=== PATIENT | male | born 1970 ===

== ENCOUNTER → 2021-02-02 06:35 | Outpatient (CLI) | payer OTHER | END | disposition home or self-care (01) | LOC: LAB 06:35 | PROVIDERS: ATTEND Internal Medicine Endocrinology, Diabetes & Metabolism | DX: Z20.822 Contact with and (suspected) exposure to COVID-19 (principal); Z20.820 Contact with and (suspected) exposure to varicella ==

== ENCOUNTER 2021-05-15 07:37 | Outpatient (CLI) | payer OTHER | END 2021-05-15 07:38 | disposition home or self-care (01) | LOC: LAB 07:37 | PROVIDERS: ATTEND Emergency Medicine Pediatric Emergency Medicine | DX: Z03.818 Encounter for observation for suspected exposure to other biological agents ruled out (principal) ==

== ENCOUNTER 2021-05-24 06:28 | Outpatient (CLI) | payer OTHER | END 2021-05-24 06:29 | disposition home or self-care (01) | LOC: LAB 06:28 | PROVIDERS: ATTEND Internal Medicine Endocrinology, Diabetes & Metabolism | DX: Z20.828 Contact with and (suspected) exposure to other viral communicable diseases (principal) ==